=== PATIENT | female | born 1985 | race Caucasian/White ===

== ENCOUNTER 2021-01-07 15:33 | Emergency (ER) | payer OTHER | END 2021-01-07 16:50 | disposition home or self-care (01) | LOC: JVIRT 15:33 | DX: U07.1 COVID-19 (principal) | CPT/HCPCS: C9803; G2251-GT; Q3014-GT; U0003 ==

== ENCOUNTER 2022-02-06 20:17 | Emergency (ER) | payer OTHER ==
[2022-02-06 20:28] VITALS: BP 118/66; PULSE 95; TEMP 98.7; BMI 42.5
[2022-02-06] MEDS ORDERED: ONDANSETRON 4 MG/2 ML VIAL IVPUSH ONE (20:55)
[2022-02-06] MEDS ORDERED: ACETAMINOPHEN 1000 MG/100 ML BAG IVPB ONE (20:55)
[2022-02-06] MEDS ORDERED: SODIUM CHLORIDE 1,000 ML IV STA (20:55)
[2022-02-06] MEDS ORDERED: ONDANSETRON 4 MG/2 ML VIAL ONE (20:57)
[2022-02-06] MEDS ORDERED: ACETAMINOPHEN INJECTION 100 ML IVPB ONE (20:58)
[2022-02-06 21:32] LABS: HCG,QUALITATIVE URINE Negative
[2022-02-06 21:42] LABS: HEMATOCRIT 38.2 % (32.4-45.2); HEMOGLOBIN 13.2 G/dL (10.7-15.3); MCH 30.5 pg (25.7-33.7); MCHC 34.6 g/dl (32.0-36.0); MEAN CELL VOLUME 88.3 fl (80-96); PLATELET COUNT 226.9 10^3/uL (134-434); RBC 4.33 10^6/uL (3.60-5.2); RDW 13.8 % (11.6-15.6); WHITE BLOOD COUNT 15.3 10^3/uL (4.0-10.8)
[2022-02-06 21:47] LABS: ALBUMIN 3.8 g/dl (3.4-5.0); BILIRUBIN,TOTAL 0.8 mg/dl (0.2-1); CALCIUM 9.8 mg/dl (8.5-10); CREATININE 0.8 mg/dl (0.55-1.3); TOT PROT 6.9 g/dl (6.4-8.2)
[2022-02-06 22:02] LABS: PLATELET ESTIMATE ADEQUATE
[2022-02-06 22:04] LABS: ANISOCYTOSIS 1+
== END 2022-02-06 22:38 | disposition home or self-care (01) ==
LOC: MERGE 20:17 → FER 20:17
PROC: 3E033GC Introduction of Other Therapeutic Substance into Peripheral Vein, Percutaneous Approach (ICD-10-PCS; principal; 2022-02-06)
DX: K52.9 Noninfective gastroenteritis and colitis, unspecified (principal)
CPT/HCPCS: 36415; 80053; 81003; 84703; 85025; 93005; 99284-25

== ENCOUNTER 2024-09-05 19:34 | Emergency (ER) | payer OTHER ==
[2024-09-05 19:51] VITALS: BP 102/50; PULSE 100; RESP 18; TEMP 98.4; BMI 39.4
[2024-09-05] MEDS ORDERED: ALBUTEROL SO4 2.5/IPRATROPIUM 0.5 INH SOL 3 ML VIAL.NEB. NEB ONE ×2 (20:17→20:19)
[2024-09-05] MEDS ORDERED: DEXAMETHASONE 4 MG TABLET (FP) ONE (20:18)
[2024-09-05] MEDS ORDERED: AZITHROMYCIN 500 MG TABLET ONE (20:18)
[2024-09-05] MEDS: AZITHROMYCIN 500 MG TABLET PO ONE (20:29)
[2024-09-05] MEDS: ALBUTEROL SO4 2.5/IPRATROPIUM 0.5 INH SOL 3 ML VIAL.NEB. NEB ONE (20:29)
[2024-09-05] MEDS: DEXAMETHASONE 4 MG TABLET (FP) PO ONE (20:29)
== END 2024-09-05 20:41 | disposition home or self-care (01) ==
LOC: FER 19:34
PROC: 3E0F7GC Introduction of Other Therapeutic Substance into Respiratory Tract, Via Natural or Artificial Opening (ICD-10-PCS; principal; 2024-09-05)
DX: J18.9 Pneumonia, unspecified organism (principal); R05.9 Cough, unspecified
CPT/HCPCS: 99283-25